=== PATIENT | male | born 1975 | race African-American/Black ===

== ENCOUNTER 2018-06-14 21:41 | Emergency (ER) | payer MEDICAID ==
[~2018-06-14] VITALS: Ht 185.4 cm; Wt 84.0 kg
[2018-06-14] MEDS ORDERED: MAGNESIUM 2 G PREMIX 50 ML IV STA (22:13)
[2018-06-14] MEDS ORDERED: IPRATROPIUM BROMIDE (0.02%) 0.5MG/2.5ML NEB HHN STA (22:13)
[2018-06-14] MEDS ORDERED: ALBUTEROL (0.083%) 2.5MG/3ML NEB HHN STA (22:13)
[2018-06-14] MEDS ORDERED: METHYLPREDNISOLONE SOD SUCC 125 MG/2 ML VIAL IV STA (22:13)
[2018-06-15] MEDS ORDERED: IBUPROFEN 600MG TABLET PO ONE (00:30)
[2018-06-15] MEDS ORDERED: ALBUTEROL (0.083%) 2.5MG/3ML NEB HHN ONE (00:45)
[2018-06-15 03:49] VITALS: BP 117/56
== END 2018-06-15 04:02 | disposition home or self-care (01) ==
LOC: ER 22:34
DX: J45.901 Unspecified asthma with (acute) exacerbation (principal); F17.200 Nicotine dependence, unspecified, uncomplicated
CPT/HCPCS: 94640; 96365; 96375; 99284; J2930; J3475; J7611; Z7610; 99283

== ENCOUNTER 2018-10-24 11:54 | Inpatient (IN) | payer MEDICAID ==
[~2018-10-24] VITALS: Ht 172.7 cm; Wt 81.2 kg
[2018-10-24] MEDS ORDERED: METHYLPREDNISOLONE SOD SUCC 125 MG/2 ML VIAL IV STA (12:11)
[2018-10-24] MEDS ORDERED: ALBUTEROL (0.083%) 2.5MG/3ML NEB HHN STA (12:11)
[2018-10-24] MEDS ORDERED: IPRATROPIUM BROMIDE (0.02%) 0.5MG/2.5ML NEB HHN STA (12:11)
[2018-10-24] MEDS ORDERED: MAGNESIUM 2 G PREMIX 50 ML IV ONE (12:15)
[2018-10-24 12:32] LABS: BASOPHILS % 0.5 % (0.0-2.0); EOSINOPHILS % 1.9 % (0.0-5.0); HEMATOCRIT. 43.1 % (42.0-52.0); HEMOGLOBIN. 14.8 g/dL (14.0-18.0); LYMPHOCYTES % 13.5 % (20.0-50.0); MEAN CORPUSCULAR HEMOGLOBIN 30.7 pg (28.0-32.0); MEAN CORPUSCULAR VOLUME 89.5 fL (80.0-94.0); MEAN PLATELET VOLUME 6.8 fl (7.4-10.4); MONOCYTES % 5.8 % (2.0-8.0); NEUTROPHILS % 78.3 % (40.0-76.0); PLATELET 271 x1000/uL (130-400); RED BLOOD CELL COUNT 4.82 mill/uL (4.7-6.1); RED CELL DISTRIBUTION WIDTH 13.9 % (11.6-14.6)
[2018-10-24 12:38] LABS: CHLORIDE 108 mEq/L (98-107)
[2018-10-24 12:58] LABS: D-DIMER 0.78 mg/L FEU (<0.50)
[2018-10-24] MEDS ORDERED: ONDANSETRON HCL 4MG/2ML INJ IV PRN (14:30)
[2018-10-24] MEDS ORDERED: IPRATROPIUM/ALBUTEROL 0.5-3(2.5)MG/3ML NEB INH PRN (14:30)
[2018-10-24] MEDS ORDERED: ACETAMINOPHEN 325MG TABLET PO PRN (14:30)
[2018-10-24] MEDS ORDERED: IPRATROPIUM/ALBUTEROL 0.5-3(2.5)MG/3ML NEB INH SCH (14:30)
[2018-10-24] MEDS ORDERED: GUAIFENESIN 200MG/10ML SUGAR FREE UDC PO PRN (14:30)
[2018-10-24] MEDS ORDERED: CLONIDINE 0.1MG TABLET PO PRN (14:30)
[2018-10-24] MEDS ORDERED: LEVOFLOXACIN 500MG PREMIX 100 ML IV SCH (14:30)
[2018-10-24] MEDS ORDERED: DOCUSATE SODIUM 100MG CAPSULE PO PRN (14:30)
[2018-10-24] MEDS ORDERED: HYDROCODONE/ACETAMINOPHEN 5/325MG TABLET PO PRN (14:30)
[2018-10-24 14:52] LABS: BG BASE EXCESS -5.9 mmol/L (-2.0-2.0); BG BILEVEL POS AIRWAY PRESSURE 15/5; BG CARBOXYHEMOGLOBIN 0.3 % (0.5-1.5); BG DEOXYHEMOGLOBIN 0.6 % (0.0-5.0); BG FRACTION INSPIRED OXYGEN 60; BG HCO3 ACT 19.8 mmol/L (22.0-26.0); BG METHEMOGLOBIN 0.3 % (0.0-1.5); BG OXYGEN SATURATION 99.4 % (92.0-98.5); BG OXYHEMOGLOBIN 98.8 % (94.0-97.0); BG PCO2 39.6 mmHg (35.0-45.0); BG PH 7.316 (7.350-7.450); BG PO2 205.6 mmHg (75.0-100.0); BG SAMPLE SITE RIGHT RADIAL; BG TOTAL HEMOGLOBIN 15.2 g/dL (12.0-18.0); BG VENT MODE MASK - BIPAP; BG VENT RATE 16 set
[2018-10-24] MEDS ORDERED: IOHEXOL-350 100 ML BOTTLE ONE (15:57)
[2018-10-24] MEDS ORDERED: MORPHINE SULFATE 4 MG/ML CPJ (NOT FOR IM USE) IV ONE (16:15)
[2018-10-24] MEDS ORDERED: ONDANSETRON HCL 4MG/2ML INJ IV ONE (16:15)
[2018-10-24 16:48] LABS: T4 FREE 0.99 ng/dL (0.76-1.46)
[2018-10-24 18:26] LABS: *AMPHETAMINES SCREEN URINE NEGATIVE (NEGATIVE); *BARBITURATES SCREEN URINE NEGATIVE (NEGATIVE); *BENZODIAZEPINES SCREEN URINE NEGATIVE (NEGATIVE); *COCAINE SCREEN URINE NEGATIVE (NEGATIVE); CANNABINOID URINE SCREEN PRESUMTIVE POSITIVE (NEGATIVE); METHADONE URINE SCREEN NEGATIVE (NEGATIVE)
[2018-10-24 18:27] LABS: OPIATES URINE SCREEN NEGATIVE (NEGATIVE); PHENCYCLIDINE URINE SCREEN NEGATIVE (NEGATIVE)
[2018-10-24] MEDS ORDERED: METHYLPREDNISOLONE SOD SUCC 125 MG/2 ML VIAL IV NR (20:30)
[2018-10-24 22:30] VITALS: BP 147/65
[2018-10-24] MEDS ORDERED: ALBU6.7H9 INH (23:18)
[2018-10-25] VITALS (16 sets, daily range): BP systolic 115–148; BP diastolic 74–98
[2018-10-25] MEDS: IPRATROPIUM BROMIDE (0.02%) 0.5MG/2.5ML NEB HHN SCH ×5 (01:07→21:11)
[2018-10-25] MEDS: LEVOFLOXACIN 500MG PREMIX 100 ML IV SCH (01:10)
[2018-10-25] MEDS: METHYLPREDNISOLONE SOD SUCC 125 MG/2 ML VIAL IV SCH ×4 (03:26→20:57)
[2018-10-25 07:19] LABS: HEMATOCRIT. 43.3 % (42.0-52.0); HEMOGLOBIN. 14.8 g/dL (14.0-18.0); MEAN CORPUSCULAR HEMOGLOBIN 30.7 pg (28.0-32.0); MEAN PLATELET VOLUME 7.9 fl (7.4-10.4); PLATELET 270 x1000/uL (130-400); RED BLOOD CELL COUNT 4.81 mill/uL (4.7-6.1); RED CELL DISTRIBUTION WIDTH 13.8 % (11.6-14.6)
[2018-10-25 07:29] LABS: CHLORIDE 104 mEq/L (98-107)
[2018-10-25] MEDS: AMLODIPINE 10MG TABLET PO SCH (07:50)
[2018-10-25] MEDS: LORATADINE 10MG TABLET PO SCH (07:50)
[2018-10-25] MEDS: FAMOTIDINE 20MG TABLET PO SCH ×2 (07:50→20:57)
[2018-10-25] MEDS ORDERED: PNEUMOCOCCAL 23-VAL P-SAC VAC 0.5 ML IM ONE (08:00)
[2018-10-25 10:18] LABS: PLATELET ESTIMATE NORMAL
[2018-10-25] MEDS ORDERED: MONTELUKAST SODIUM 10MG TABLET PO SCH (17:00)
[2018-10-26] VITALS (9 sets, daily range): BP systolic 118–154; BP diastolic 72–94
[2018-10-26] MEDS: IPRATROPIUM BROMIDE (0.02%) 0.5MG/2.5ML NEB HHN SCH ×5 (00:44→15:36)
[2018-10-26] MEDS: LEVOFLOXACIN 500MG PREMIX 100 ML IV SCH (01:11)
[2018-10-26] MEDS: METHYLPREDNISOLONE SOD SUCC 125 MG/2 ML VIAL IV SCH ×3 (02:56→15:00)
[2018-10-26] MEDS: FAMOTIDINE 20MG TABLET PO SCH (09:29)
[2018-10-26] MEDS: AMLODIPINE 10MG TABLET PO SCH (09:29)
[2018-10-26] MEDS: LORATADINE 10MG TABLET PO SCH (09:29)
[2018-10-26] MEDS ORDERED: TERBUTALINE SULFATE 1MG/ML VIAL SUBCUT NR (12:45)
== END 2018-10-26 16:05 | disposition home or self-care (01) | DRG 133 ==
LOC: ER 11:54 → SUPCPDRO 14:24 → 3WST 15:58 → SUPCPDRO 16:39 → ENRESERV 19:55
PROVIDERS: ADMIT Hospitalist; ATTEND Hospitalist
PROC: 5A09357 Assistance with Respiratory Ventilation, Less than 24 Consecutive Hours, Continuous Positive Airway Pressure (ICD-10-PCS; principal; 2018-10-24)
PROC: 5A09357 Assistance with Respiratory Ventilation, Less than 24 Consecutive Hours, Continuous Positive Airway Pressure (ICD-10-PCS; 2018-10-26)
DX: J96.00 Acute respiratory failure, unspecified whether with hypoxia or hypercapnia (principal); I47.1 Supraventricular tachycardia; I10 Essential (primary) hypertension; J45.901 Unspecified asthma with (acute) exacerbation; F12.90 Cannabis use, unspecified, uncomplicated; F17.210 Nicotine dependence, cigarettes, uncomplicated; Z71.6 Tobacco abuse counseling
CPT/HCPCS: 36415; 36600; 71045; 71275; 80305; 82375; 82805; 83880; 84439; 84443; 84484; 85379; 90732; 93005; 94640; 94660; 96365; 96366; 96375; 99291; J1956; J2270; J2930; J3105; J3475; J7050; J7620; Q9967